=== PATIENT | male | born 1990 | race Caucasian/White ===

== ENCOUNTER 2017-10-04 20:36 | Emergency (ER) | payer BC, OTHER ==
[~2017-10-04] VITALS: Ht 180.3 cm; Wt 111.9 kg
[~2017-10-04 20:36] MED LIST: ONDA4TAB7 SL
[2017-10-04 20:39] VITALS: TEMP 36.6; Ht 180.3 cm; Wt 111.9 kg
[2017-10-04 21:29] LABS: BASO % 0.5 %; BASO ABS # 0.04 K/uL (0-0.2); COMPLETE YES; EOS % 2.9 %; HEMATOCRIT 42.1 % (42-52); IG% 0.1 %; LYMPH % 26.2 %; LYMPH ABS # 2.19 K/uL (1.2-3.4); MEAN CELL VOLUME 84.9 fL (80-100); MEAN CORPUSCULAR HEMOGLOBIN 30.6 pg (25-34); MEAN CORPUSCULAR HGB CONC 36.1 g/dl (32-36); MEAN PLATELET VOLUME 10.6 fL (7.4-10.4); MONO % 7.6 %; NEUT % 62.7 %; PLATELET COUNT 207 K/uL (130-400); RED BLOOD COUNT 4.96 M/uL (4.7-6.1); WHITE BLOOD COUNT 8.37 K/uL (4.8-10.8)
--- NOTE | 2017-10-04 21:33 | DIAGNOSTIC IMAGING REPORT ---
CHEST ONE VIEW PORTABLE CLINICAL HISTORY: Chest pain. COMPARISON STUDY: Chest radiograph January 08, 2013. FINDINGS: Lung volumes are at the lower limits of normal. Lungs are clear. No pneumothorax or pleural effusion is noted. Cardiomediastinal silhouette is normal. Pulmonary vascularity is normal. IMPRESSION: No acute cardiopulmonary findings. Electronically signed by: Vitaliy Whitehead M.D. 10/04/2017 9:32 PM Dictated Date/Time: 10/04/2017 9:31 PM
[2017-10-04 21:50] LABS: ALT/SGPT 54 U/L (12-78); BLOOD UREA NITROGEN 13 mg/dl (7-18); CALCIUM 9.5 mg/dl (8.5-10.1); CARBON DIOXIDE 26 mmol/L (21-32); CHLORIDE 102 mmol/L (98-107); GLUCOSE 95 mg/dl (70-99); POTASSIUM 3.8 mmol/L (3.5-5.1); SODIUM 137 mmol/L (136-145)
[2017-10-04 21:53] LABS: ALKALINE PHOSPHATASE 70 U/L (45-117); AST/SGOT 27 U/L (15-37)
--- NOTE | 2017-10-04 22:36 | EMERGENCY ROOM VISIT NOTE ---
History Report prepared by Surya: Magaly Thornton Under the Supervision of: Dr. Tank Hernandez M.D. First contact with patient: 21:08 Chief Complaint: CHEST PAIN Stated Complaint: CHEST PAINS DISCOMFORT Nursing Triage Summary: see triage note. History of Present Illness The patient is a 26 year old male who presents to the Emergency Room with complaints of intermittent chest pain starting last night. The patient states that it mainly stays on the left side, but when it gets really bad, shoots across his rib cage in a throbbing feeling. He notes that the episodes last 30- 45 minutes and he tries to walk them off. He states that the most recent episode came on when he went to sit on the couch. He states that he came to the ED because he felt like he was going to pass out. He notes that he believes he worked himself up to that point and did not feel that way because the pain was so severe. He notes that he did travel the [address] from [place] to here four days ago, but states that he does that every week. He also notes that his father recently had a 24 hour stomach bug. The patient complains of a sore throat. The patient denies taking anything for his chest pain, ever having this before, an early family cardiac history, pain with deep breathing, recent lifting, and any bruising. Pt denies LOC, headache, fevers, chills, diaphoresis, visual changes, neck pain , tearing pain radiating to the back, personal history or family history of aneurysm or pulmonary embolism, uncontrolled hypertension, breathing difficulties, leg swelling, coagulation abnormalities, prolonged travel, recent surgery or immobilization, nausea, vomiting, abdominal pain, melena, hematochezia, urinary symptoms, numbness, weakness, lymphadenopathy, rash, or other complaints. Source of History: patient Onset: last night Position: chest (left) Quality: other (shooting, throbbing) Timing: intermittent Associated Symptoms: + sorethroat Note: The patient denies any bruising and pain with deep breathing. Review of Systems See HPI for pertinent positives and negatives. A total of ten systems were reviewed and were otherwise negative. Past Medical & Surgical Medical Problems: (1) No Known Active Medical Problems Family History Patient reports no known family medical history. Social History Smoking Status: Never Smoker Marital Status: single Housing Status: lives with family Occupation Status: employed Current/Historical Medications No Active Prescriptions or Reported Meds Allergies Coded Allergies: No Known Allergies (Unverified , 10/04/17) Physical Exam Vital Signs Date Time Temp Pulse Resp B/P (MAP) Pulse Ox O2 Delivery O2 Flow Rate FiO2 10/05/17 00:06 78 16 134/78 98 Room Air 10/04/17 22:05 84 18 142/80 98 Room Air 10/04/17 22:04 79 10/04/17 21:20 Room Air 10/04/17 21:20 Room Air 10/04/17 20:39 36.6 84 20 157/98 98 Room Air Physical Exam GENERAL: Awake, alert, well-appearing, in no distress HENT: Normocephalic, atraumatic. Oropharynx unremarkable. EYES: Normal conjunctiva. Sclera non-icteric. NECK: Supple. No nuchal rigidity. FROM. No JVD. RESPIRATORY: Clear to auscultation. CARDIAC: Regular rate, normal rhythm. Extremities warm and well perfused. Pulses equal. ABDOMEN: Soft, non-distended. No tenderness to palpation. No rebound or guarding. No masses. RECTAL: Deferred. MUSCULOSKELETAL: Chest examination reveals no tenderness. The back is symmetrical on inspection without obvious abnormality. There is no CVA tenderness to palpation. No joint edema. LOWER EXTREMITIES: Calves are equal size bilaterally and non-tender. No edema. No discoloration. NEURO: Normal sensorium. No sensory or motor deficits noted. SKIN: No rash or jaundice noted. Medical Decision & Procedures ER Provider Diagnostic Interpretation: Radiology results as stated below per my review and radiologist interpretation: CHEST ONE VIEW PORTABLE CLINICAL HISTORY: Chest pain. COMPARISON STUDY: Chest radiograph January 08, 2013. FINDINGS: Lung volumes are at the lower limits of normal. Lungs are clear. No pneumothorax or pleural effusion is noted. Cardiomediastinal silhouette is normal. Pulmonary vascularity is normal. IMPRESSION: No acute cardiopulmonary findings. Electronically signed by: Vitaliy Whitehead M.D. 10/04/2017 9:32 PM Dictated Date/Time: 10/04/2017 9:31 PM Laboratory Results 10/04/17 21:20 Red Blood Count 4.96, Mean Corpuscular Volume 84.9, Mean Corpuscular Hemoglobin 30.6, Mean Corpuscular Hemoglobin Concent 36.1, Mean Platelet Volume 10.6, Neutrophils (%) (Auto) 62.7, Lymphocytes (%) (Auto) 26.2, Monocytes (%) (Auto) 7.6, Eosinophils (%) (Auto) 2.9, Basophils (%) (Auto) 0.5, Neutrophils # (Auto) 5.25, Lymphocytes # (Auto) 2.19, Monocytes # (Auto) 0.64, Eosinophils # (Auto) 0.24, Basophils # (Auto) 0.04 10/04/17 21:20 Test 10/04/17 21:20 10/04/17 23:53 White Blood Count 8.37 K/uL (4.8-10.8) Red Blood Count 4.96 M/uL (4.7-6.1) Hemoglobin 15.2 g/dL (14.0-18.0) Hematocrit 42.1 % (42-52) Mean Corpuscular Volume 84.9 fL (80-100) Mean Corpuscular Hemoglobin 30.6 pg (25-34) Mean Corpuscular Hemoglobin Concent 36.1 g/dl (32-36) Platelet Count 207 K/uL (130-400) Mean Platelet Volume 10.6 fL (7.4-10.4) Neutrophils (%) (Auto) 62.7 % Lymphocytes (%) (Auto) 26.2 % Monocytes (%) (Auto) 7.6 % Eosinophils (%) (Auto) 2.9 % Basophils (%) (Auto) 0.5 % Neutrophils # (Auto) 5.25 K/uL (1.4-6.5) Lymphocytes # (Auto) 2.19 K/uL (1.2-3.4) Monocytes # (Auto) 0.64 K/uL (0.11-0.59) Eosinophils # (Auto) 0.24 K/uL (0-0.5) Basophils # (Auto) 0.04 K/uL (0-0.2) RDW Standard Deviation 35.8 fL (36.4-46.3) RDW Coefficient of Variation 11.7 % (11.5-14.5) Immature Granulocyte % (Auto) 0.1 % Immature Granulocyte # (Auto) 0.01 K/uL (0.00-0.02) D-Dimer < 190 ug/L FEU (0-500) Anion Gap 9.0 mmol/L (3-11) Est Creatinine Clear Calc Drug Dose 139.9 ml/min Estimated GFR () 118.2 Estimated GFR (Non- 102.0 BUN/Creatinine Ratio 13.0 (10-20) Calcium Level 9.5 mg/dl (8.5-10.1) Total Bilirubin 0.4 mg/dl (0.2-1) Direct Bilirubin < 0.1 mg/dl (0-0.2) Aspartate Amino Transf (AST/SGOT) 27 U/L (15-37) Alanine Aminotransferase (ALT/SGPT) 54 U/L (12-78) Alkaline Phosphatase 70 U/L (45-117) Total Protein 8.1 gm/dl (6.4-8.2) Albumin 4.6 gm/dl (3.4-5.0) Lipase 151 U/L (73-393) Troponin I < 0.015 ng/ml (0-0.045) Laboratory results reviewed by me ECG Indication: chest pain Rate (beats per minute): 79 Rhythm: normal sinus Findings: no acute ischemic change, no ectopy, other (No pericarditis) ED Course 2121: The patient was evaluated in room C9. A complete history and physical exam was performed. 2256: I reevaluated the patient and he is pain free. I updated him on the rechecking of his troponin and ECG. Medical Decision Triage Nursing notes reviewed and agree them. Additional history obtained from the family. The patient's history was concerning for chest pain. Differential diagnosis: Etiologies such as atypical chest pain, cardiac ischemia, aortic dissection, pulmonary embolism, pneumonia, pneumothorax, musculoskeletal, infections, pericarditis, myocarditis, esophageal rupture, gastrointestinal, as well as others were entertained. Physical examination: As above. ER treatment provided: No medication given. On reassessment the patient felt better. Diagnostic interpretation by me: The electrocardiogram was negative for pathologic change. Repeat ECG negative. The labs revealed unremarkable CBC and chemistry panel. Cardiac markers and LFTs negative. Repeat troponin unchanged. Imaging studies: Chest x-ray as above The patient had atypical chest symptoms. His ECG was unremarkable 2. Blood work was unremarkable. D-dimer negative. By the evaluation outlined above emergent etiologies such as cardiac ischemia, aortic dissection, pulmonary embolism, pneumonia, pneumothorax, infections, pericarditis, myocarditis, gastrointestinal, as well as others were deemed relatively unlikely. The patient and family were informed about the findings as listed above. All questions were answered and they were pleased with the treatment. Return instructions were outlined and the patient was discharged in stable condition. Referral: The patient is currently residing near [place]. He does not have a primary provider since moving from the area. He will follow up for primary care and seek emergency care if his chest pain symptoms persist or worsen.I gave my usual and customary discussion regarding this issue. Medication Reconcilliation Current Medication List: was personally reviewed by me Impression Primary Impression: Left sided chest pain Scribe Attestation The scribe's documentation has been prepared under my direction and personally reviewed by me in its entirety. I confirm that the note above accurately reflects all work, treatment, procedures, and medical decision making performed by me. Departure Information Dispostion Home / Self-Care Prescriptions No Active Prescriptions or Reported Meds Referrals Yoandy Cisneros M.D. (PCP) Patient Instructions My [facility] Additional Instructions CHEST PAIN INSTRUCTIONS: Ibuprofen(Motrin, Advil) may be used for fever or pain. Use 600mg every six hours as needed. Take with food. Avoid using more than 2400mg in a 24 hour period. Do not use 2400mg per day for more than three consecutive days without physician direction. Prolonged inappropriate use can lead to stomach upset or ulcers. (AND/OR) Acetaminophen(Tylenol) may be used for fever or pain. Use 1000mg every six hours as needed. Avoid using more than 4000mg in a 24 hour period. Rest and drink plenty of fluids as tolerated. Continue current medications. Avoid strenuous activities and anything that worsens your pain. Resume normal activities once your symptoms resolve. Return to the ER immediately for worsening or persistent chest pain, abdominal pain, vomiting, fevers, chest pains, difficulty breathing, worsening of your condition, or as needed. Follow up with a primary physician next week for a recheck of your current condition.
[2017-10-05 00:06] VITALS: BP 134/78; PULSE 78; O2SAT 98
== END 2017-10-05 00:34 | disposition home or self-care (01) ==
LOC: C.EDB 20:37 → C.EDC 10-05 00:34
DX: R07.9 Chest pain, unspecified (principal); J02.9 Acute pharyngitis, unspecified